=== PATIENT | male | born 1980 | race American Indian/Alaskan Native ===

== ENCOUNTER 2018-07-28 14:10 | Emergency (ER) | payer SELFPAY ==
[2018-07-28 17:10] VITALS: BP 124/63
--- NOTE | 2018-07-28 19:54 | Emergency Department Report ---
Chief Complaint: Urogenital-Male Stated Complaint: BURNING GENITAL AREA Time Seen by Provider: 07/28/18 18:29 - HPI History of Present Illness: This is a 38-year-old male nontoxic, well nourished in appearance, no acute signs of distress presents to the ED with c/o of a tingling sensation when urinating. Patient denies any penile discharge. Patient stated he just wants to be tested for STD. Patient denies any testicular pain or swelling. Patient denies any penile ulcers or lesions. Patient denies any nausea, vomiting, chest pain, shortness of breathe, fever, chills, headache, back pain, numbness, tingling, stiff neck. Patient denies any urinary symptoms. Patient denies any allergies or PMH. - Exam Vital Signs: Vital Signs 07/28/18 17:08 Temperature 98 F Pulse Rate 77 Respiratory 16 Rate Blood Pressure 124/63 O2 Sat by Pulse 100 Oximetry Physical Exam: GENERAL: The patient is a well-developed, well-nourished in no apparent distress. Patient is alert and acting appropriately for age. Alert and oriented 3, no apparent distress, normal gait, atraumatic.. ABDOMEN: Soft, nontender, and nondistended. Positive bowel sounds. No hepatosplenomegaly was noted. No guarding or rebound tenderness, negative epigastric bruit. Negative psoas sign, negative milton sign, negative McBurneys sign MSE screening note: Focused history and physical exam performed. Due to findings the following was ordered: ED Medical Decision Making - Medical Decision Making This is a 38-year-old male that presents with nonmedical emergency. Patient is stable and was examined by me. Patient is asymptomatic and denies any symptoms. Patient states he just wants to be tested for STD. [employer] Under[employer] Operator has approached patient for a co-pay but patient refused. I will refer the patient [facility] and health Department. At time of discharge, the patient does not seem toxic or ill in appearance. No acute signs of distress noted. Patient agrees to discharge treatment plan of care. No further questions noted by the patient. ED Disposition for MSE Clinical Impression: Possible exposure to STD Disposition: Z- MED SCREENING EXAM-LEFT Is pt being admited?: No Does the pt Need Aspirin: No Condition: Stable Instructions: Safe Sex (ED) Additional Instructions: Follow-up with a primary care doctor/[facility] in 3-5 days or if symptoms worsen and continue return to emergency room as soon as possible. Referrals: PRIMARY CAREMD [Referring] - 3-5 Days VIRGINIE KELLOGG MD [Staff Physician] - 3-5 Days [facility] [Outside] - 3-5 Days [facility] [Outside] - 3-5 Days
== END 2018-07-28 18:55 | disposition left against medical advice (07) ==
LOC: ED 14:10
DX: R39.89 Other symptoms and signs involving the genitourinary system (principal); Z20.2 Contact with and (suspected) exposure to infections with a predominantly sexual mode of transmission
CPT/HCPCS: 99281